=== PATIENT | female | born 1970 | race Caucasian/White ===

== ENCOUNTER → 2017-06-16 | Outpatient (CLI) | payer BC ==
--- NOTE | 2017-06-17 13:08 | MM ---
Reason for exam: screening (asymptomatic). Last mammogram was performed 1 year and 5 months ago. History: Family history of breast cancer in grandmother. Cyst aspiration of the left breast, 2016. Took hormonal contraceptives for 17 years. Physical Findings: A clinical breast exam by your physician is recommended on an annual basis and results should be correlated with mammographic findings. MG 3D Screening Mammo W/Cad Bilateral CC and MLO view(s) were taken. Prior study comparison: January 03, 2016, bilateral MG 3d diag mammo w/cad [facility]. June 10, 2011, bilateral digital screening mammo w/CAD. The breast tissue is heterogeneously dense. This may lower the sensitivity of mammography. No significant changes when compared with prior studies. ASSESSMENT: Negative, BI-RAD 1 RECOMMENDATION: Routine screening mammogram of both breasts in 1 year.
== END | disposition home or self-care (01) ==
LOC: RADMAMWWP 14:57
PROVIDERS: ATTEND Family Medicine
DX: Z12.31 Encounter for screening mammogram for malignant neoplasm of breast (principal)
CPT/HCPCS: 77063; G0202

== ENCOUNTER → 2018-06-19 | Outpatient (CLI) | payer BC ==
--- NOTE | 2018-06-19 08:40 | US ---
EXAMINATION TYPE: US abdomen complete DATE OF EXAM: 06/19/2018 COMPARISON: NONE CLINICAL HISTORY: R10.13 epi pain N92.6 irreg menses, epigastric pressure, bloating EXAM MEASUREMENTS: Liver Length: 13.0 cm Gallbladder Wall: 0.2 cm CBD: 0.3 cm Spleen: 8.5 cm Right Kidney: 11.5 x 6.5 x 3.7 cm Left Kidney: 11.3 x 6.2 x 5.2 cm Pancreas: wnl Liver: wnl Gallbladder: wnl Evidence for sonographic Butler's sign: no CBD: wnl Spleen: wnl Right Kidney: No hydronephrosis or masses seen Left Kidney: No hydronephrosis or masses seen Upper IVC: wnl Abd Aorta: wnl The liver is homogenous. The intrahepatic portion of the IVC and proximal abdominal aorta are within normal limits. There is no evidence of cholelithiasis. Common bile duct is unremarkable. The visu alized portions of the pancreas are homogenous. The spleen is unremarkable. Kidneys are symmetric a nd free of hydronephrosis. No renal lesions are seen. IMPRESSION: No sonographic evidence of cholelithiasis or acute cholecystitis. If there is concern for biliary dyskinesia given the patient's symptoms HIDA scan with CCK could be performed.
--- NOTE | 2018-06-19 10:16 | US ---
EXAMINATION TYPE: US pelvic complete DATE OF EXAM: 06/19/2018 COMPARISON: NONE CLINICAL HISTORY: R10.13 epi pain N92.6 irreg mensis. Bloating, heavy menses TECHNIQUE: Transabdominal (TA). Date of LMP: 05/31/18 EXAM MEASUREMENTS: Uterus: 8.7 x 4.2 x 4.8 cm Endometrial Stripe: 1.5 cm Right Ovary: 3.5 x 2.6 x 2.2 cm Left Ovary: 3.0 x 1.6 x 1.5 cm 1. Uterus: Anteverted small amount of fluid within cervical canal 2. Endometrium: upper limits of normal for menstrual stage 3. Right Ovary: complex area = 1.9 x 2.0 x 2.2cm . This likely represents an involuting hemorrhagic follicle. 4. Left Ovary: follicles noted 5. Bilateral Adnexa: wnl 6. Posterior cul-de-sac: wnl IMPRESSION: Endometrial thickness is at the cut off of upper limits of normal. Further evaluation wit h direct visualization or sonohysterogram could be performed to evaluate for endometrial hyperplasia, endometrial polyp or endometrial mass. Alternatively reimaging with pelvic ultrasound at a different phase of menses could be performed.
== END | disposition home or self-care (01) ==
LOC: RADUSWWP 06:59
PROVIDERS: ATTEND Family Medicine
DX: Z00.00 Encounter for general adult medical examination without abnormal findings (principal); R10.13 Epigastric pain; N92.6 Irregular menstruation, unspecified
CPT/HCPCS: 76700; 76856

== ENCOUNTER → 2018-07-11 | Outpatient (CLI) | payer BC ==
--- NOTE | 2018-07-13 13:48 | MM ---
Reason for exam: screening (asymptomatic). Last mammogram was performed 1 year and 1 month ago. History: Family history of breast cancer in maternal grandmother at age 81. Cyst aspiration of the left breast, 2016. Took hormonal contraceptives for 17 years. Physical Findings: A clinical breast exam by your physician is recommended on an annual basis and results should be correlated with mammographic findings. MG 3D Screening Mammo W/Cad Bilateral CC and MLO view(s) were taken. Prior study comparison: June 16, 2017, bilateral MG 3d screening mammo w/cad. January 03, 2016, bilateral MG 3d diag mammo w/cad [facility]. The breast tissue is extremely dense which could obscure a lesion on mammography. Finding: There is a 7 mm equal density (isodense) mass in the upper quadrant of the right breast. ASSESSMENT: Incomplete: need additional imaging evaluation, BI-RAD 0 RECOMMENDATION: Special view mammogram of the right breast. If lesion persists on supplemental views, image directed ultrasound is recommended. [facility] will attempt to contact patient to return for supplemental views and ultrasound if indicated.
== END | disposition home or self-care (01) ==
LOC: RADMAMWWP 09:43
PROVIDERS: ATTEND Family Medicine
DX: Z12.31 Encounter for screening mammogram for malignant neoplasm of breast (principal)
CPT/HCPCS: 77063; 77067

== ENCOUNTER → 2018-07-13 | Outpatient (CLI) | payer BC ==
--- NOTE | 2018-07-13 07:38 | US ---
EXAMINATION TYPE: US transvaginal DATE OF EXAM: 07/13/2018 COMPARISON: US CLINICAL HISTORY: N92.6 Irregular Menstration. Pelvic pressure, prev abnormal US TECHNIQUE: Transvaginal (TV). Transvaginal sonographic images of the pelvis were acquired. Date of LMP: 06/27/2018 EXAM MEASUREMENTS: Uterus: 9.3 x 5.3 x 4.4 cm Endometrial Stripe: 1.8 cm Right Ovary: 3.1 x 1.9 x 2.5 cm Left Ovary: 5.1 x 4.1 x 4.9 cm 1. Uterus: Retroverted Heterogeneous 2. Endometrium: Thickened with possible polyp= 0.9 x 0.8 x 0.5 cm, with vascular "stalk" 3. Right Ovary: wnl, follicles 4. Left Ovary: Simple cyst= 4.4 x 3.0 x 4.6 cm 5. Bilateral Adnexa: Small amount of free fluid adjacent to left ovary 6. Posterior cul-de-sac: wnl IMPRESSION: 1. I cannot exclude endometrial polyp. 2. Simple cyst left ovary as noted. 3. Small amount of free fluid.
== END ==
LOC: RADUSWWP 06:53
PROVIDERS: ATTEND Family Medicine
DX: N83.202 Unspecified ovarian cyst, left side (principal)
CPT/HCPCS: 76830

== ENCOUNTER → 2018-07-24 | Outpatient (CLI) | payer BC ==
--- NOTE | 2018-07-27 07:47 | MM ---
Reason for exam: additional evaluation requested from abnormal screening. Last mammogram was performed less than 1 month ago. History: Family history of breast cancer in maternal grandmother at age 81. Cyst aspiration of the left breast, 2016. Took hormonal contraceptives for 17 years. Physical Findings: Nurse did not find any significant physical abnormalities on exam. MG 3D Work Up W/Cad RT Spot compression CC, spot compression MLO, and LM view(s) were taken of the right breast. Prior study comparison: July 11, 2018, bilateral MG 3d screening mammo w/cad. June 16, 2017, bilateral MG 3d screening mammo w/cad. The breast tissue is heterogeneously dense. This may lower the sensitivity of mammography. No definate lesion, fibroglandular dense tissue. These results were verbally communicated with the patient and result sheet given to the patient on 07/24/18. ASSESSMENT: Incomplete: need additional imaging evaluation, BI-RAD 0 RECOMMENDATION: Ultrasound of the right breast.
--- NOTE | 2018-07-27 07:49 | USB ---
Reason for exam: additional evaluation requested from abnormal screening. History: Family history of breast cancer in maternal grandmother at age 81. Cyst aspiration of the left breast, 2016. Took hormonal contraceptives for 17 years. US Breast Workup Limited RT Right limited breast ultrasound including focal area of concern, retroareolar and axilla demonstrates a 2.7 x 0.7 x 1.6cm cystic cluster at 2 o'clock, a 0.7 x 0.4 x 0.4cm cystic cluster at 12 o'clock and duct ectasia at the posterior nipple. Overall fibrocystic change. These results were verbally communicated with the patient and result sheet given to the patient on 07/24/18. ASSESSMENT: Benign, BI-RAD 2 RECOMMENDATION: Return to routine screening mammogram schedule for both breasts. Manage patient on a clinical basis.
== END | disposition home or self-care (01) ==
LOC: RADMAMWWP 14:35
PROVIDERS: ATTEND Family Medicine
DX: R92.8 Other abnormal and inconclusive findings on diagnostic imaging of breast (principal)
CPT/HCPCS: 77061; 77065

== ENCOUNTER → 2021-06-11 | Outpatient (CLI) | payer BC ==
--- NOTE | 2021-06-12 09:13 | MM ---
Reason for exam: screening (asymptomatic). Last mammogram was performed 2 years and 11 months ago. History: Patient has history of other cancer at age 46. Family history of breast cancer in maternal grandmother at age 81. Cyst aspiration of the left breast, 2016. Took hormonal contraceptives for 17 years. Physical Findings: A clinical breast exam by your physician is recommended on an annual basis and results should be correlated with mammographic findings. MG 3D Screening Mammo W/Cad Bilateral CC and MLO view(s) were taken. Prior study comparison: July 24, 2018, right breast MG 3d work up w/cad RT. July 11, 2018, bilateral MG 3d screening mammo w/cad. The breast tissue is extremely dense which could obscure a lesion on mammography. No significant changes when compared with prior studies. ASSESSMENT: Benign, BI-RAD 2 RECOMMENDATION: Routine screening mammogram of both breasts in 1 year.
== END | disposition home or self-care (01) ==
LOC: RADMAMWWP 08:20
PROVIDERS: ATTEND Family Medicine
DX: Z12.31 Encounter for screening mammogram for malignant neoplasm of breast (principal); Z80.3 Family history of malignant neoplasm of breast
CPT/HCPCS: 77063; 77067

== ENCOUNTER → 2022-07-03 | Outpatient (CLI) | payer BC ==
--- NOTE | 2022-07-04 08:25 | MM ---
Reason for Exam: Screening (asymptomatic). Last screening mammogram was performed 12 month(s) ago. Patient History: Menarche at age 14. First Full-Term at age 25. Patient has history of breast feeding. Other cancer, age 46. Patient used Hormonal Contraceptives for 17 years. 2016, Cyst Aspiration on the Left side. Maternal grandmother had breast cancer, age 81. Last menstrual period: 06/22/2022 Risk Values: Carol 5 year model risk: 1.1%. NCI Lifetime model risk: 8.8%. Prior Study Comparison: 06/10/2011 Bilateral Screening Mammogram, [facility]. 01/03/2016 Bilateral Diagnostic Mammogram, [facility]. 01/03/2016 Bilateral Diagnostic Ultrasound, [facility]. 06/16/2017 Bilateral Screening Mammogram, [facility]. 07/11/2018 Bilateral Screening Mammogram, [facility]. 07/24/2018 Right Diagnostic Mammogram, [facility]. 07/24/2018 Right Diagnostic Ultrasound, [facility]. 06/11/2021 Bilateral Screening Mammogram, [facility]. Tissue Density: The breast tissue is heterogeneously dense. This may lower the sensitivity of mammography. Findings: Analyzed By CAD. New oval circumscribed 1.5 cm mass 3 cm distance from nipple central right breast There is no suspicious group of microcalcifications or distortion in either breast. Overall Assessment: Incomplete: need additional imaging evaluation, BI-RAD 0 Management: Diagnostic Breast Ultrasound of the right breast. COMMENTS: Targeted ultrasound right breast. Electronically signed and approved by: Henry Em M.D.
== END | disposition home or self-care (01) ==
LOC: RADMAMWWP 11:10
PROVIDERS: ATTEND Family Medicine
DX: Z12.31 Encounter for screening mammogram for malignant neoplasm of breast (principal)
CPT/HCPCS: 77063; 77067

== ENCOUNTER → 2022-07-15 | Outpatient (CLI) | payer BC ==
--- NOTE | 2022-07-15 09:54 | USB ---
Reason for Exam: Additional evaluation requested from abnormal screening. Patient History: Menarche at age 14. First Full-Term at age 25. Patient has history of breast feeding. Other cancer, age 46. Patient used Hormonal Contraceptives for 17 years. 2016, Cyst Aspiration on the Left side. Maternal grandmother had breast cancer, age 81. Risk Values: Carol 5 year model risk: 1.1%. NCI Lifetime model risk: 8.8%. Prior Study Comparison: 07/24/2018 Right Diagnostic Mammogram, [facility]. 06/11/2021 Bilateral Screening Mammogram, [facility]. 07/03/2022 Bilateral MG 3D screening mammo w/cad, [facility]. Findings: The axilla of the right breast and the retroareolar of the right breast were scanned. There is a well-circumscribed simple anechoic cyst with posterior acoustic enhancement and no internal color flow within the right breast 9:00 2 cm from the nipple measuring 1.4 x 0.8 x 1.3 cm. No solid mass identified. Overall Assessment: Benign, BI-RAD 2 Management: Screening Mammogram of both breasts in 1 year. A clinical breast exam by your physician is recommended on an annual basis and results should be correlated with mammographic findings. Electronically signed and approved by: Issa Foreman D.O.
== END | disposition home or self-care (01) ==
LOC: RADUSWWP 09:31
PROVIDERS: ATTEND Family Medicine
DX: R92.8 Other abnormal and inconclusive findings on diagnostic imaging of breast (principal)